=== PATIENT | female | born 1960 | race Caucasian/White ===

== ENCOUNTER 2023-04-15 21:55 | Emergency (ER) | payer OTHER | END 2023-04-15 22:43 | disposition home or self-care (01) | LOC: JD.ED 21:55 | DX: S90.932A Unspecified superficial injury of left great toe, initial encounter (principal); W27.0XXA Contact with workbench tool, initial encounter | CPT/HCPCS: 99282; 99283 ==

== ENCOUNTER 2023-12-29 11:26 | Emergency (ER) | payer OTHER ==
[2023-12-29 11:58] LABS: BASOPHILS PERCENT AUTO 0.4 % (0.0-1.0); EOSINOPHILS PERCENT AUTO 0.4 % (0.0-6.0); IMMATURE GRAN ABSOLUTE AUTO 0.01 K/mm3 (0.00-0.05); IMMATURE GRAN PERCENT AUTO 0.2 % (0.0-0.4); LYMPHOCYTES ABSOLUTE AUTO 1.6 K/mm3 (1.0-4.8); LYMPHOCYTES PERCENT AUTO 27.8 % (24.0-44.0); MEAN CORPUSCULAR HEMOGLOBIN 29.2 pg (28.0-32.0); MEAN CORPUSCULAR HGB CONC 34.1 g/dl (32.0-36.0); MEAN CORPUSCULAR VOLUME 85.6 fl (83.0-99.0); MONOCYTES ABSOLUTE AUTO 0.6 K/mm3 (0.0-0.8); MONOCYTES PERCENT AUTO 10.8 % (0.0-8.0); NEUTROPHILS ABSOLUTE AUTO 3.4 K/mm3 (1.8-7.7); NEUTROPHILS PERCENT AUTO 60.4 % (41.0-71.0); PLATELET COUNT,PLT 288 K/mm3 (150-400); RED BLOOD CELL COUNT 5.14 M/mm3 (4.10-5.30); WHITE BLOOD CELL COUNT,WBC 5.65 K/mm3 (3.9-11.3)
[2023-12-29 12:16] LABS: LACTIC ACID 1.2 mmol/L (0.4-2.0)
[2023-12-29 12:22] LABS: A/G RATIO 0.9 (1-2); ANION GAP 19.7 (5-15); BILIRUBIN TOTAL 0.4 mg/dL (0.2-1.0); C-REACTIVE PROTEIN 0.77 mg/dL (<0.30); CALCIUM 9.3 mg/dL (8.5-10.1); CREATININE 0.9 mg/dL (0.55-1.02); EST CRCL DRUG DOSING (CG) 59.12 mL/min; MAGNESIUM 1.9 mg/dL (1.8-2.4); POTASSIUM,K 2.7 mEq/L (3.5-5.1); PROTEIN TOTAL,TP 8.3 g/dl (6.4-8.2)
[2023-12-29] MEDS: Sodium Chloride 0.9% 1,000 ML IV SCH ×2 (12:28→13:49)
[2023-12-29] MEDS: Ondansetron 4 MG/2 ML SDV IVPUSH ONE (12:28)
[2023-12-29 13:26] LABS: APPEARANCE,URINE CLEAR (Clear); BILIRUBIN,URINE 1+ (Negative); COLOR,URINE DARK YELLOW (Yellow); GLUCOSE,URINE NEGATIVE (Negative); KETONES,URINE TRACE (Negative); LEUKOCYTE ESTERASE,URINE NEGATIVE (Negative); NITRITE,URINE NEGATIVE (Negative); OCCULT BLOOD,URINE NEGATIVE (Negative); PROTEIN,URINE 2+ (Negative); UROBILINOGEN,URINE 0.2 (0.2-1.0)
[2023-12-29] MEDS: Potassium Chloride 10 MEQ in Premix Bag 1 BAG IV SCH (13:49)
[2023-12-29] MEDS: Potassium Chloride 20 MEQ Tab.ER PO ONE (13:50)
[2023-12-29 13:55] LABS: BACTERIA,URINE FEW /hpf (FEW); RBC,URINE 0-5 /hpf (0-5); SQUAMOUS EPITHELIAL CELLS,UR 0-5 /hpf (0-5); WBC,URINE 0-5 /hpf (0-5)
[2023-12-29 13:56] LABS: MUCUS,URINE MODERATE /hpf (FEW)
[2023-12-29] MEDS: Ondansetron 4 MG Tab.DIS PO ONE (14:25)
[2023-12-29] MEDS: Vancomycin 125 MG Cap PO SCH (14:25)
[2023-12-29 15:32] LABS: CORONAVIRUS COVID-19 NAA NEGATIVE (NEGATIVE); INFLUENZA A NAA NEGATIVE (NEGATIVE); RESPIRATORY SYNCYTIAL VIR NAA NEGATIVE (NEGATIVE)
== END 2023-12-29 18:27 | disposition home or self-care (01) ==
LOC: JD.ED 11:26
DX: A04.72 Enterocolitis due to Clostridium difficile, not specified as recurrent (principal); E87.6 Hypokalemia; L97.519 Non-pressure chronic ulcer of other part of right foot with unspecified severity; Z90.49 Acquired absence of other specified parts of digestive tract
CPT/HCPCS: 0241U; 36415; 80053; 81001; 83605; 83690; 83735; 85025; 86140; 87324; 87493; 96361; 96365; 96366; 96375; 99284; A9270; J2405; J3480; J7030